=== PATIENT | female | born 1985 | race Caucasian/White ===

== ENCOUNTER 2021-10-28 08:31 | Emergency (ER) | payer OTHER ==
[~2021-10-28] VITALS: Ht 160 cm; Wt 90.7 kg
[2021-10-28 08:31] VITALS: BP_SYST 134
--- NOTE | 2021-10-28 08:31 | NUR ---
Patient to ER bed 7 for evaluation. Side rails up. Report given to Ana MCGINNIS.
--- NOTE | 2021-10-28 08:42 | NUR ---
DR ROBLES AT BEDSIDE EVALUATING PT
[2021-10-28] MEDS ORDERED: IBUPROFEN 600 MG TABLET PO ONE (08:45)
--- NOTE | 2021-10-28 08:52 | NUR ---
PT TAKEN TO XRAY AT THIS TIME
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
[2021-10-28] MEDS ORDERED: TRAM50TA PO (09:12)
[2021-10-28] MEDS ORDERED: SOM350 PO (09:12)
[2021-10-28] MEDS ORDERED: MED4 PO (09:12)
[2021-10-28] MEDS ORDERED: IBUPROFEN 800 MG TABLET PO ONE (09:30)
--- NOTE | 2021-10-28 09:34 | NUR ---
Patient given written and verbal discharge instructions and verbalizes understanding. ER MD discussed with patient the results and treatment provided. Patient in stable condition. ID arm band removed. IV catheter removed intact and dressing applied, no active bleeding. Rx of METHYLPREDNISOLONE, CARISOPRODOL, TRAMADOL given. Patient educated on pain management and to follow up with PMD. Pain Scale 4. Opportunity for questions provided and answered. Medication side effect fact sheet provided.
[2021-10-28 09:36] VITALS: BP_SYST 134
[2021-10-28] MEDS ORDERED: METH-800 PO (12:39)
== END 2021-10-28 09:36 | disposition home or self-care (01) ==
LOC: SED 08:31
DX: S16.1XXA Strain of muscle, fascia and tendon at neck level, initial encounter (principal); Z88.1 Allergy status to other antibiotic agents; Z88.2 Allergy status to sulfonamides; Z88.5 Allergy status to narcotic agent; Z79.899 Other long term (current) drug therapy; V49.49XA Driver injured in collision with other motor vehicles in traffic accident, initial encounter; Y93.89 Activity, other specified; Y92.89 Other specified places as the place of occurrence of the external cause; Y99.8 Other external cause status
CPT/HCPCS: 72040-TC; 99283